=== PATIENT | female | born 1995 ===

== ENCOUNTER 2020-02-24 12:47 | Inpatient (IN) | payer OTHER ==
[~2020-02-24 12:47] MED LIST: Bupivacaine/Epinephrine 0.25% 30 ML VIAL ONE
[2020-02-24] MEDS ORDERED: Lidocaine 1% (PF) 30 ML VIAL SC PRN (13:31)
[2020-02-24] MEDS ORDERED: Misoprostol 200 MCG TAB PR PRN (13:31)
[2020-02-24] MEDS ORDERED: Ibuprofen 800 MG TAB PO PRN (13:31)
[2020-02-24] MEDS ORDERED: Diphenoxylate HCl/Atropine Tablet PO PRN ×2 (13:31)
[2020-02-24] MEDS ORDERED: Methylergonovine 0.2 MG/ML VIAL IM PRN (13:31)
[2020-02-24] MEDS ORDERED: Butorphanol Tartrate 1 MG/ML VIAL SLOW IVP PRN (13:31)
[2020-02-24] MEDS ORDERED: Promethazine HCl 25 MG/ML VIAL IM PRN (13:31)
[2020-02-24] MEDS ORDERED: hydrALAZINE 20 MG/ML VIAL SLOW IVP PRN (13:31)
[2020-02-24] MEDS ORDERED: Carboprost 250 MCG/ML AMP IM PRN (13:31)
[2020-02-24] MEDS ORDERED: NS / Oxytocin 40 units/1000ml 1,000 ML IV PRN (13:31)
[2020-02-24] MEDS ORDERED: Acetaminophen 500 MG TAB PO PRN (13:31)
[2020-02-24] MEDS ORDERED: HYDROcodone/Acetaminophen 5/325 mg Tablet PO PRN ×2 (13:31)
[2020-02-24] MEDS ORDERED: Docusate 100 MG CAP PO PRN (13:31)
[2020-02-24] MEDS ORDERED: Ondansetron PF 4 MG/2 ML Vial IVP PRN (13:31)
[2020-02-24] MEDS ORDERED: Betamet Acet/Betamet Na Ph 30 MG/5 ML VIAL ONE (13:36)
[2020-02-24] MEDS ORDERED: NS w/ Oxytocin 10 units 500 ML IV SCH (13:45)
[2020-02-24 13:57] LABS: Hemoglobin 12.4 g/dL (12.0-16.0); Mean Corpuscular Hemoglobin 30.2 pg (27.0-31.0); Mean Corpuscular Volume 88.8 fL (78.0-98.0); Mean Platelet Volume 9.4 fL (7.4-10.4); Platelet Count 250 thou/uL (130-400); RBC Distribution Width 11.8 % (11.5-14.5)
[2020-02-24] MEDS ORDERED: Penicillin G Potassium 5 MILL.UNITS in Sodium Chloride 0.9% 100 ML IVPB SCH (14:00)
[2020-02-24] MEDS: Lactated Ringer's 1,000 ML IV SCH (14:30)
[2020-02-24 14:35] LABS: Syphilis Antibody Nonreactive (Nonreactive); Syphilis Antibody Index 0.23 S/CO (<1.00 Non-Reactive)
[2020-02-24 17:20] LABS: HBSAg Index 0.15 S/CO (0-0.99); Hep B Surf Ag Non-Reactive S/CO (NonReactive)
[2020-02-24] MEDS: Betamet Acet/Betamet Na Ph 30 MG/5 ML VIAL IM SCH (17:41)
[2020-02-24] MEDS: Penicillin G 2.5 MILL.units 2.5 MILL.UNITS in Premix Bag 1 BAG IVPB SCH (21:27)
--- NOTE | 2020-02-24 23:42 | PDOC.LDHP ---
Labor and Delivery H&P HPI: 24 y/o at 35 and 5/7 weeks presents at 6cm with BBOW from clinic. Current gestational age (weeks): 35 Due date: 03/26/20 Grav: 1 Para: 0 Abnormal US findings: No Current medications: pre-[employer] vitamins Allergies/Adverse Reactions: Allergies Allergy/AdvReac Type Severity Reaction Status Date / Time No Known Allergies Allergy Verified 02/24/20 13:49 Social history: none - Physical Exam Vital signs reviewed and normal: yes General: NAD Heart: RRR Lungs: CTAB Abdomen: gravid Extremeties: no edema FHT: category 1 - Assessment L&D Assessment: labor - Plan Plan: admit to L&D, labor augmentation if indicated
[2020-02-25] MEDS: Penicillin G 2.5 MILL.units 2.5 MILL.UNITS in Premix Bag 1 BAG IVPB SCH ×5 (00:59→17:48)
[2020-02-25] MEDS ORDERED: Fentanyl 4 mcg/Bup 0.1% Cadd 100 ML ONE (03:07)
[2020-02-25] MEDS ORDERED: Lactated Ringer's 500 ML IV PRN (04:11)
[2020-02-25] MEDS ORDERED: diphenhydrAMINE 50 MG/ML VIAL IVP PRN (04:11)
[2020-02-25] MEDS ORDERED: Ondansetron PF 4 MG/2 ML Vial IVP SCH (04:11)
[2020-02-25] MEDS ORDERED: EPHEDRINE 25 MG/5 ML SYRINGE SLOW IVP PRN (04:11)
[2020-02-25] MEDS ORDERED: Naloxone HCl 0.4 mg/ml Vial IVP PRN ×2 (04:11)
[2020-02-25] MEDS ORDERED: Acetaminophen 325 MG TAB PO PRN (04:11)
[2020-02-25] MEDS ORDERED: Promethazine HCl 25 MG/ML VIAL IM PRN ×2 (04:11→23:18)
[2020-02-25] MEDS ORDERED: Communication Order-Pharmacy FS SCH (04:15)
[2020-02-25] MEDS: Lactated Ringer's 1,000 ML IV SCH ×2 (05:14→08:20)
[2020-02-25] MEDS: NS w/ Oxytocin 10 units 500 ML IV SCH (10:48)
[2020-02-25] MEDS: Fentanyl 4 mcg/Bupivacaine 0.1% Cassette 100 ML EPIDURAL SCH ×2 (11:05→17:49)
[2020-02-25] MEDS: Betamet Acet/Betamet Na Ph 30 MG/5 ML VIAL IM SCH (12:33)
[2020-02-25 13:22] LABS: SARS-CoV-2 MS2 Positive; SARS-CoV-2 N Gene Negative; SARS-CoV-2 S Gene Negative; SARS-CoV-2 by NAA Not Detected (NotDetected); SARS-CoV-2 orf1ab Negative
[2020-02-25] MEDS ORDERED: Methylergonovine 0.2 MG/ML VIAL ONE (20:13)
[2020-02-25] MEDS ORDERED: Misoprostol 200 MCG TAB ONE ×2 (20:16→20:18)
[2020-02-25] MEDS ORDERED: Preparation H Ointment 28 GM TUBE PR PRN (23:18)
[2020-02-25] MEDS ORDERED: Methylergonovine 0.2 MG TAB PO PRN (23:18)
[2020-02-25] MEDS ORDERED: Ondansetron PF 4 MG/2 ML Vial IVP PRN (23:18)
[2020-02-25] MEDS ORDERED: Misoprostol 200 MCG TAB VAG PRN (23:18)
[2020-02-25] MEDS ORDERED: hydrALAZINE 20 MG/ML VIAL SLOW IVP PRN (23:18)
[2020-02-25] MEDS ORDERED: HYDROcodone/Acetaminophen 5/325 mg Tablet PO PRN ×2 (23:18)
[2020-02-25] MEDS ORDERED: NS / Oxytocin 40 units/1000ml 1,000 ML IV SCH (23:18)
[2020-02-25] MEDS ORDERED: Lanolin Ointment 7 GM TUBE TOP PRN (23:18)
[2020-02-25] MEDS ORDERED: Benzocaine-Menthol 82.5 ML CAN TOP PRN (23:18)
[2020-02-25] MEDS ORDERED: Bisacodyl 10 MG SUPP PR PRN (23:18)
[2020-02-25] MEDS ORDERED: Milk Of Magnesia 30 ML UDCUP PO PRN (23:18)
[2020-02-25] MEDS ORDERED: Zolpidem Tartrate 5 MG TAB PO PRN (23:18)
[2020-02-25] MEDS ORDERED: Docusate Calcium (SURFAK) 240 MG CAP PO SCH (23:30)
[2020-02-25] MEDS: Ibuprofen 800 MG TAB PO SCH (23:52)
[2020-02-26] MEDS: NS w/ Oxytocin 10 units 500 ML IV SCH (03:59)
[2020-02-26] MEDS: Lactated Ringer's 1,000 ML IV SCH (03:59)
[2020-02-26] MEDS: Penicillin G 2.5 MILL.units 2.5 MILL.UNITS in Premix Bag 1 BAG IVPB SCH (04:00)
[2020-02-26] MEDS: Ferrous Sulfate 325 MG TAB PO SCH ×2 (08:00→16:29)
[2020-02-26] MEDS: Ibuprofen 800 MG TAB PO SCH ×2 (08:11→16:28)
[2020-02-26] MEDS: Docusate Calcium (SURFAK) 240 MG CAP PO SCH ×2 (08:11→22:07)
[2020-02-26] MEDS: Prenatal Vitamin 1 TAB PO SCH (08:11)
[2020-02-26] MEDS ORDERED: Adacel (T-DAP) 0.5 ML SYRINGE IM ONE (09:00)
[2020-02-26] MEDS ORDERED: Varicella virus, LIVE 0.5 ML VIAL SC ONE (09:00)
[2020-02-26] MEDS ORDERED: Measles/Mumps/Rubella 10 MCG/0.5 ML VIAL SC ONE (09:00)
[2020-02-27] MEDS: Ibuprofen 800 MG TAB PO SCH ×3 (01:09→15:23)
[2020-02-27] MEDS: Ferrous Sulfate 325 MG TAB PO SCH (07:57)
[2020-02-27] MEDS: Docusate Calcium (SURFAK) 240 MG CAP PO SCH (08:42)
[2020-02-27] MEDS: Prenatal Vitamin 1 TAB PO SCH (08:42)
[2020-02-27 09:38] VITALS: BP 122/78; TEMP 98.5
--- NOTE | 2020-03-04 03:12 | DN ---
DATE OF PROCEDURE: 02/25/2020 TIME OF SERVICE: 2008, [place] Daylight Savings Time. PREOPERATIVE DIAGNOSIS: Intrauterine at 35 weeks and 6 days with labor. POSTOPERATIVE DIAGNOSIS: Intrauterine at 35 weeks and 6 days with labor. PROCEDURE PERFORMED: Spontaneous vaginal delivery over intact perineum. FINDINGS: Viable female infant weighing 3280 g or 7 pounds 4 ounces with Apgars of 8 and 9. QUANTITATIVE BLOOD LOSS: 624 mL. COMPLICATIONS: None. PROCEDURE IN DETAIL: The patient presented to [facility] where she was admitted to the labor and delivery service. The patient underwent a normal and uneventful labor with normal cervical dilatation until she was found to be completely dilated. She was then allowed to push and was able to bring the baby down and delivered the baby in a vertex presentation without difficulties. Once the head delivered in occiput anterior position, the shoulders followed spontaneously along with the rest of the baby's body. Once out the baby's mouth and nose were bulb suctioned. The cord was clamped and cut and baby was handed to waiting attendants. Cord blood was collected. Gentle fundal massage was performed and the placenta delivered intact without problems. Hemostasis was assured. Quantitative blood loss was calculated. Inspection of the cervix, vaginal vault, and perineum did not reveal any lacerations needing suturing. Once again, hemostasis was within normal limits and the patient was allowed to recover in the labor and delivery room. Baby went to nursery. Job ID: [id number]
== END 2020-02-27 17:10 | disposition home or self-care (01) | DRG 807 ==
LOC: L&D 12:47 → 3SW 02-25 23:46
PROVIDERS: ADMIT Obstetrics & Gynecology; ATTEND Obstetrics & Gynecology
PROC: 10E0XZZ Delivery of Products of Conception, External Approach (ICD-10-PCS; principal; 2020-02-25)
PROC: 10907ZC Drainage of Amniotic Fluid, Therapeutic from Products of Conception, Via Natural or Artificial Opening (ICD-10-PCS; 2020-02-25)
DX: O60.14X0 Preterm labor third trimester with preterm delivery third trimester, not applicable or unspecified (principal); Z37.0 Single live birth; Z20.828 Contact with and (suspected) exposure to other viral communicable diseases; Z3A.35 35 weeks gestation of pregnancy
CPT/HCPCS: 36415; 51702; 85027; 86780; 86850; 86900; 86901; 87340; 87635; 90715; J0702; J2210; J2405; J2540; J2590; J3490; U0003